=== PATIENT | male | born 1985 | race American Indian/Alaskan Native ===

== ENCOUNTER 2017-06-20 17:16 | Emergency (ER) | payer SELFPAY ==
[2017-06-20 17:40] VITALS: BP 129/95
[2017-06-20] MEDS ORDERED: ULTRAM PO ONE (20:07)
--- NOTE | 2017-06-20 20:07 | Emergency Department Report ---
- General Chief complaint: Skin/Abscess/Foreign Body Stated complaint: CYST Time Seen by Provider: 06/20/17 18:59 Source: patient Mode of arrival: Ambulatory Limitations: No Limitations - History of Present Illness Initial comments: 32-year-old male comes in complaining of a abscess next to his testicle. Patient reports it is been there for the last 2 weeks but feels is getting worse. Patient denies any fever or chills nausea nausea vomiting this reports that his swelling and pain. He should denies taking any pain medication at all in the last 2 weeks. Patient does smoke cigarettes. Patient denies having any similar symptoms in the past. Has no past medical history currently takes no medications and has no known drug allergies. MD complaint: abscess/boil -: week(s) (2) Tetanus Up to Date: unsure Location: genitals Severity: severe Severity scale (0 -10): 8 Quality: aching, sharp Consistency: constant Improves with: none Worsens with: palpation, movement Context: none Associated symptoms: denies other symptoms Treatments Prior to Arrival: none - Related Data Previous Rx's Medication Instructions Recorded Last Taken Type Cephalexin [Keflex] 500 mg PO BID #20 capsule 06/20/17 Unknown Rx Sulfamethoxazole/Trimethoprim 1 each PO BID #20 tablet 06/20/17 Unknown Rx [Bactrim DS TAB] traMADol [Ultram 50 MG tab] 50 mg PO Q6HR PRN #12 tablet 06/20/17 Unknown Rx Allergies Allergy/AdvReac Type Severity Reaction Status Date / Time No Known Allergies Allergy Unverified 06/20/17 17:40 Abscess Boil [facility] - HPI Chief Complaint: Skin/Abscess/Foreign Body Stated Complaint: CYST Time Seen by Provider: 06/20/17 18:59 Home Medications: Previous Rx's Medication Instructions Recorded Last Taken Type Cephalexin [Keflex] 500 mg PO BID #20 capsule 06/20/17 Unknown Rx Sulfamethoxazole/Trimethoprim 1 each PO BID #20 tablet 06/20/17 Unknown Rx [Bactrim DS TAB] traMADol [Ultram 50 MG tab] 50 mg PO Q6HR PRN #12 tablet 06/20/17 Unknown Rx Allergies/Adverse Reactions: Allergies Allergy/AdvReac Type Severity Reaction Status Date / Time No Known Allergies Allergy Unverified 06/20/17 17:40 ED Review of Systems ROS: Stated complaint: CYST Other details as noted in HPI Constitutional: denies: chills, fever Eyes: as per HPI ENT: denies: ear pain, throat pain Respiratory: denies: cough, shortness of breath, wheezing Cardiovascular: denies: chest pain, palpitations Endocrine: no symptoms reported Gastrointestinal: denies: abdominal pain, nausea, diarrhea Genitourinary: denies: urgency, dysuria Musculoskeletal: denies: back pain, joint swelling, arthralgia Skin: lesions (left testicular ) Neurological: denies: headache, weakness, paresthesias Psychiatric: denies: anxiety, depression Hematological/Lymphatic: denies: easy bleeding, easy bruising ED Past Medical Hx - Surgical History Past Surgical History?: No - Social History Smoking Status: Current Every Day Smoker Substance Use Type: Alcohol - Medications Home Medications: Home Medications Medication Instructions Recorded Confirmed Last Taken Type Cephalexin [Keflex] 500 mg PO BID #20 capsule 06/20/17 Unknown Rx Sulfamethoxazole/Trimethoprim 1 each PO BID #20 tablet 06/20/17 Unknown Rx [Bactrim DS TAB] traMADol [Ultram 50 MG tab] 50 mg PO Q6HR PRN #12 tablet 06/20/17 Unknown Rx ED Physical Exam - General Limitations: No Limitations General appearance: alert, in no apparent distress - Head Head exam: Present: atraumatic, normocephalic - Eye Eye exam: Present: normal appearance - ENT ENT exam: Present: mucous membranes moist - Neck Neck exam: Present: normal inspection - Respiratory Respiratory exam: Present: normal lung sounds bilaterally. Absent: respiratory distress - Cardiovascular Cardiovascular Exam: Present: regular rate, normal rhythm. Absent: systolic murmur, diastolic murmur, rubs, gallop - GI/Abdominal GI/Abdominal exam: Present: soft, normal bowel sounds - exam: Present: testicular tenderness (left testicular tenderness but more of the tissue versus the testicle), circumcision. Absent: urethral discharge - Extremities Exam Extremities exam: Present: normal inspection - Back Exam Back exam: Present: normal inspection - Neurological Exam Neurological exam: Present: alert, oriented X3 - Psychiatric Psychiatric exam: Present: normal affect, normal mood - Skin Skin exam: Present: warm, other (left testicle/scrotum indurated tender to palpate very minimal fluctuation.) ED Course Vital Signs 06/20/17 17:37 Temperature 98.5 F Pulse Rate 77 Respiratory 18 Rate Blood Pressure 129/95 O2 Sat by Pulse 100 Oximetry - I & D Left Scrotum Blade Size: 11 I & D Procedure: betadine prep, sterile drapes applied, sterile dressing applied Progress: Not much discharge expressed. Mostly blood. Patient tolerated procedure well ED Medical Decision Making - Medical Decision Making Patient has been evaluated by this provider as well as Dr. Martinez. Discussed the patient will attempt to do a incision and drain. Location is actually over his left testicle. Induration with just a little bit of fluctuation. No lymphadenopathy appreciated. Critical care attestation.: If time is entered above; I have spent that time in minutes in the direct care of this critically ill patient, excluding procedure time. ED Disposition Clinical Impression: Testicular abscess Disposition: - TO HOME OR SELFCARE Is pt being admited?: No Does the pt Need Aspirin: No Condition: Stable Instructions: Abscess (ED) Additional Instructions: Complete antibiotics as prescribed. Place warm compresses to abscess 3-4 times a day. Take pain medication as needed. Return back to the emergency room if symptoms persist or gets worse. Prescriptions: Cephalexin [Keflex] 500 mg PO BID #20 capsule Sulfamethoxazole/Trimethoprim [Bactrim DS TAB] 1 each PO BID #20 tablet traMADol [Ultram 50 MG tab] 50 mg PO Q6HR PRN #12 tablet PRN Reason: Pain Referrals: [facility] [Provider Group] - 3-5 Days Forms: Work/School Release Form(ED)
== END 2017-06-20 20:50 | disposition home or self-care (01) ==
LOC: ED 17:16
DX: N45.4 Abscess of epididymis or testis (principal); F17.200 Nicotine dependence, unspecified, uncomplicated
CPT/HCPCS: 99282